=== PATIENT | male | born 1950 | race Caucasian/White ===

== ENCOUNTER 2018-03-18 15:04 | Day surgery (SDC) | payer MEDICARE, OTHER ==
--- NOTE | 2018-03-11 06:51 | HP ---
CC: Dr. Christiano Louise * ADMITTING HISTORY AND PHYSICAL: DATE OF ADMISSION: 03/21/18 ADMITTING DIAGNOSES: 1. Right hydronephrosis. 2. Partial urinary retention. 3. Enlarged prostate. PLANNED PROCEDURE: Right retrograde pyelogram, right ureteroscopy, and right stent insertion. SURGEON: Dr. Samuel. HISTORY OF PRESENT ILLNESS: Mark Winter is a 68-year-old gentleman who has had longstanding voiding symptoms for the last 10 years or so and has been on Flomax 0.4 mg once a day. He had taken Avodart briefly for a year and then had stopped it as he had not noticed any significant improvement in his symptoms. When I examined him, he was noted to have a moderately enlarged prostate with a nodule in the left base and also noted to have partial urinary retention with a postvoid residual of almost 400 cc. He underwent cystoscopy, which had revealed markedly enlarged prostate with multiple bladder diverticula and extensively trabeculated bladder. The right and left ureteral orifices appeared to be located within the hutch diverticula bilaterally. On ultrasound and subsequently on CT, he was noted to have cgsrohic-pe-wydlan right hydronephrosis, which I suspect could be due to obstruction of the ureter at the level of the ureterovesical junction secondary to a very thick wall bladder. He also has mild left hydronephrosis. I had a detailed discussion with Mr. Winter regarding this finding and he is now bring brought in for further evaluation and management of the right-sided hydronephrosis. PAST MEDICAL HISTORY: Unremarkable. PAST SURGICAL HISTORY: Significant for bilateral inguinal hernia repair and tonsillectomy. MEDICATIONS: On admission: 1. Flomax 0.4 mg. 2. Viagra on a p.r.n. basis. 3. Multiple supplements. 4. Vitamins. ALLERGIES: TETANUS. FAMILY HISTORY: Negative for prostate or bladder cancer. SOCIAL HISTORY: Smoking history: He is a nonsmoker. REVIEW OF SYSTEMS: He is otherwise in excellent health. There is no history of diabetes mellitus or any other major systemic illness. PHYSICAL EXAMINATION GENERAL: Reveals a pleasant healthy-appearing gentleman. VITAL SIGNS: Blood pressure is 130/82, pulse 83 per minute and regular, oxygen saturation 98% on room air. LUNGS: Clear bilaterally. CARDIOVASCULAR: Regular rate and rhythm. S1, S2. ABDOMEN: Soft with a partially distended bladder. There is mild right flank tenderness. IMPRESSION: A 68-year-old gentleman with partial urinary retention, a very thick walled trabeculated bladder, and right hydronephrosis, likely secondary to obstruction at the level of the ureterovesical junction secondary to a thick walled bladder. PLAN: Right retrograde, right ureteroscopy, and right stent insertion. [id number]/CPS #: [id number] MTDD
[~2018-03-18 15:04] MED LIST: Buffered Lidocaine 0.9% SYRIN* 5 ML/SYR SYRINGE INTRADERM ONE; Dexamethasone TAB* 4 MG PO ONE; DiMENhydriNATE IV* 50 MG/ML VIAL IV PUSH PRN; Famotidine IV* 10 MG/ML 2 ML (20 mg) IV ONE; Morphine INJ* 2 MG/ML 1 ML SYRINGE (TWO MG - NEW SYRINGE VERSION) IV PRN; Naloxone* 0.4 MG/ML 1 ML VIAL IV PRN; Ondansetron TAB* 4 MG PO ONE; PROCHLORPERAZINE INJ 5 MG/ML 2 ML VIAL IV PRN; fentaNYL* 50 MCG/ML 2 ML VIAL (100 MCG VIAL) IV PRN
[2018-03-18] MEDS ORDERED: Dexamethasone TAB* 4 MG ONE (15:37)
[2018-03-18] MEDS ORDERED: Famotidine IV* 10 MG/ML 2 ML (20 mg) ONE (15:37)
[2018-03-18] MEDS ORDERED: Ondansetron ODT TAB* 4 MG ONE (15:37)
[2018-03-18] MEDS ORDERED: cefTRIAXone(*) 2 GM ADDV.VIAL IVPB ONE (15:37)
[2018-03-18] MEDS ORDERED: Gentamicin ADULT (*) 160 MG in NS 0.9% 100 ML* 100 ML IVPB ONE (16:00)
[2018-03-18] MEDS ORDERED: Chloroprocaine 2%* 20 ML VIAL ONE (16:24)
[2018-03-18] MEDS ORDERED: Ondansetron INJ* 2 MG/ML VIAL ONE (16:24)
[2018-03-18] MEDS ORDERED: Propofol* 10 MG/ML 20 ML BTL IV PUSH ONE ×2 (16:24→18:33)
[2018-03-18] MEDS ORDERED: Iohexol 180 (CONTRAST) 10 ML SDV IV ONE ×2 (16:29→17:48)
[2018-03-18] MEDS ORDERED: Midazolam* 1 MG/ML 5 ML VIAL (5 MG) ONE (16:31)
[2018-03-18] MEDS ORDERED: fentaNYL* 50 MCG/ML 2 ML VIAL (100 MCG VIAL) ONE (16:31)
[2018-03-18] MEDS ORDERED: fentaNYL* 50 MCG/ML 2 ML VIAL (100 MCG VIAL) IV PRN (17:51)
[2018-03-18] MEDS ORDERED: DiMENhydriNATE IV* 50 MG/ML VIAL IV PUSH PRN (17:51)
[2018-03-18] MEDS ORDERED: oxyCODONE/Acetamin 5/325 MG* TAB PO PRN (17:51)
[2018-03-18] MEDS ORDERED: Ondansetron INJ* 2 MG/ML VIAL IV PRN (17:51)
[2018-03-18] MEDS ORDERED: Naloxone* 0.4 MG/ML 1 ML VIAL IV PRN (17:51)
[2018-03-18] MEDS ORDERED: Furosemide IV* 10 MG/ML 2 ML VIAL (20 MG) ONE (18:01)
[2018-03-18] MEDS ORDERED: Fluorescein 10% INJ* 100 MG/ML AMP ONE (18:45)
[2018-03-18] MEDS ORDERED: Lidocaine 2% JELLY* 6 ML JELLY TOPICAL ONE (19:28)
[2018-03-18 20:53] VITALS: BP 150/80
--- NOTE | 2018-03-19 06:57 | RAD ---
INDICATION: Right retrograde pyelogram and stent insertion. COMPARISON: Comparison is made with a prior CT urogram from March 04, 2018. TECHNIQUE: 5 seconds of intermittent fluoroscopic guidance were provided and 10 spot films of the abdomen were centered on the right side. FINDINGS: There is partial opacification of the right renal collecting system there is marked distention of the ureter and proximal renal collecting system consistent with hydronephrosis. Subsequently there is placement of a double-J stent catheter on the right side which demonstrates normal course. IMPRESSION: INTRAOPERATIVE CONTROL FILMS. CPT II Codes: G9500
--- NOTE | 2018-03-19 22:08 | OP ---
CC: Dr. Christiano Louise * DATE OF OPERATION: 03/18/18 - LOCATED WITHIN [facility] DATE OF : 46 SURGEON: Dr. Samuel ANESTHESIOLOGIST: Dr. Rivera ANESTHESIA: Spinal. PRE-OP DIAGNOSES: 1. Severe right hydronephrosis and hydroureter 2. Enlarged prostate. POST-OP DIAGNOSES: 1. Severe right hydronephrosis and hydroureter 2. Enlarged prostate. OPERATIVE PROCEDURE: Cystoscopy, right retrograde pyelogram, right ureteroscopy , right ureteral dilatation, and right stent insertion. OPERATIVE FINDINGS: 1. Stricture proximal bulbar urethra. 2. Markedly enlarged prostate. 3. Extensively trabeculated bladder with multiple diverticula. 4. Severe right hydronephrosis and dilated tortuous right proximal and midureter with obstruction at the level of the ureterovesical junction. COMPLICATIONS: None. POSTOPERATIVE CONDITION: Stable. STENT USED: 6-Malian stent right ureter. INDICATIONS: Mark Winter is a 68-year-old gentleman who was evaluated for prostate enlargement and partial urinary retention. He was also noted to have nbuhltiv-dj-hkdodz hydronephrosis and a significantly dilated right ureter down to the level of the ureterovesical junction. DESCRIPTION OF PROCEDURE: After induction of spinal anesthesia, the patient was placed in dorsal lithotomy position. Sequential compression devices were in place and functioning. Initial cystoscopy revealed a stricture in the proximal bulbar urethra, which was carefully dilated. The prostate is significantly enlarged including lateral lobe and especially median lobe enlargement. The bladder was examined. The bladder is extensively trabeculated with multiple diverticula. The ureteral orifices are difficult to locate because of the presence of multiple diverticula in the area close to the trigone bilaterally. The right orifice is located at the edge of hutch diverticulum and was identified. A guidewire was introduced. There was narrowing at the level of the ureterovesical junction and the remainder of the ureter was markedly enlarged and tortuous. Because of the tortuosity of the proximal ureter, initially I could not get a wire to advance into the renal pelvis despite multiple attempts. The distal ureter was dilated to 8-Malian and the 6-Malian semirigid ureteroscope was introduced. Other than the narrowing at the ureterovesical junction, the remainder of the ureter was significantly dilated, but because of the tortuosity, it was not easy to advance the ureteroscope. The ureteroscope was carefully advanced to the level of the [id number]-hi-ymc right ureter and then a wire was advanced proximally. I initially attempted to place a 7-Malian 28-cm silicon stent, but the stent was too short and the proximal loop of the stent was in the proximal ureter, so I removed the stent. Next, I changed it for a 6-Malian regular stent and this time the proximal loop made it just into the renal pelvis. The patient was given intravenous fluorescein and I could see the fluorescein dye draining from the side holes of the stent suggesting appropriate positioning. A 22-Malian Coude Carrasco was placed for bladder drainage. The patient tolerated the procedure satisfactorily and was transferred back to the recovery area in stable condition. I think the patient will need a transurethral resection of prostate in the near future for treatment of the significantly enlarged obstructing prostate and at that time I would consider stent change or stent removal depending on the resolution of the hydronephrosis. [id number]/CPS #: [id number] [facility]TER
== END 2018-03-18 20:40 | disposition home or self-care (01) ==
LOC: OR 15:04
PROVIDERS: ATTEND Urology
DX: N13.1 Hydronephrosis with ureteral stricture, not elsewhere classified (principal); N40.0 Benign prostatic hyperplasia without lower urinary tract symptoms; N32.3 Diverticulum of bladder; N35.9 Urethral stricture, unspecified
CPT/HCPCS: 74420; A9270-GY; C1876; J0696; J1580; J1940; J2250; J2400; J2405; J2704; J3010; J8540

== ENCOUNTER 2018-04-28 06:23 | Day surgery (SDC) | payer MEDICARE, OTHER ==
--- NOTE | 2018-04-17 09:34 | HP ---
CC: Dr. Louise * ADMITTING HISTORY AND PHYSICAL: DATE OF ADMISSION: 04/28/18 PREOPERATIVE DIAGNOSES: 1. Right hydronephrosis. 2. Urinary retention. PLANNED PROCEDURE: Cystoscopy, right retrograde, right ureteral stent change, possible ureteroscopy. SURGEON: Luca Samuel MD ADMITTING HISTORY AND PHYSICAL: Mark Winter is a 68-year-old gentleman who had initially been evaluated a couple of months ago because of bothersome voiding symptoms. He was noted to be in partial urinary retention and also was noted to have bilateral hydronephrosis, fairly severe on the right side and mild on the left. He had undergone right stent insertion on 03/18/18. At that time, the ureter was very tortuous due to long-standing obstruction and I was able to place a 6-Maltese stent. He will also require a transurethral resection of prostate for his bladder outlet obstruction in the near future, and prior to that, he is now being brought in for an attempt at changing the right stent and possibly trying to place a silicone stent, which can be left in for much longer. PAST MEDICAL HISTORY: Significant for: 1. BPH. 2. Right hydronephrosis. PAST SURGICAL HISTORY: Significant for right stent insertion on 03/18/18, bilateral inguinal hernia repair and tonsillectomy. MEDICATIONS: On admission: 1. Avodart 0.5 mg once a day. 2. Multivitamins. ALLERGIES: TETANUS. SOCIAL HISTORY: Smoking history, he is a non-smoker. REVIEW OF SYSTEMS: He is otherwise in excellent health. There is no history of diabetes mellitus or any other major systemic illness. PHYSICAL EXAMINATION GENERAL: Reveals a pleasant healthy-appearing gentleman. VITAL SIGNS: Blood pressure is 112/80, pulse 96 per minute regular, oxygen saturation 98% on room air. LUNGS: Lungs are clear bilaterally. CARDIOVASCULAR: Regular rate and rhythm. S1, S2. ABDOMEN: Soft with mild right flank tenderness. A Carrasco catheter is in place, draining clear urine. IMPRESSION: A 68-year-old gentleman with urinary retention and right hydronephrosis. PLANNED PROCEDURE: Right retrograde, right ureteral stent change, possible right ureteroscopy (to be followed at some point in the near future by transurethral resection of prostate). [id number]/[facility] #: [id number] [facility]
[~2018-04-28 06:23] MED LIST changes: +Dexamethasone IV* 4 MG/ML 1 ML (4 MG) IV SLOW PU ONE; -Dexamethasone TAB* 4 MG PO ONE; -DiMENhydriNATE IV* 50 MG/ML VIAL IV PUSH PRN; -Morphine INJ* 2 MG/ML 1 ML SYRINGE (TWO MG - NEW SYRINGE VERSION) IV PRN; -Naloxone* 0.4 MG/ML 1 ML VIAL IV PRN; -Ondansetron TAB* 4 MG PO ONE; -PROCHLORPERAZINE INJ 5 MG/ML 2 ML VIAL IV PRN; -fentaNYL* 50 MCG/ML 2 ML VIAL (100 MCG VIAL) IV PRN
[2018-04-28] MEDS ORDERED: cefTRIAXone(*) 2 GM ADDV.VIAL IVPB ONE (06:44)
[2018-04-28] MEDS ORDERED: Buffered Lidocaine 0.9% SYRIN* 5 ML/SYR SYRINGE ONE (06:44)
[2018-04-28] MEDS ORDERED: Dexamethasone IV* 4 MG/ML 1 ML (4 MG) ONE (06:44)
[2018-04-28] MEDS ORDERED: Famotidine IV* 10 MG/ML 2 ML (20 mg) ONE (06:44)
[2018-04-28] MEDS ORDERED: fentaNYL* 50 MCG/ML 2 ML VIAL (100 MCG VIAL) ONE (07:27)
[2018-04-28] MEDS ORDERED: Midazolam* 1 MG/ML 2 ML VIAL (2 MG) ONE (07:27)
[2018-04-28] MEDS ORDERED: Fluorescein 10% INJ* 100 MG/ML AMP ONE (08:08)
[2018-04-28] MEDS ORDERED: oxyCODONE/Acetamin 5/325 MG* TAB PO PRN (08:11)
[2018-04-28] MEDS ORDERED: Naloxone* 0.4 MG/ML 1 ML VIAL IV PRN (08:11)
[2018-04-28] MEDS ORDERED: DiMENhydriNATE IV* 50 MG/ML VIAL IV PUSH PRN (08:11)
[2018-04-28] MEDS ORDERED: fentaNYL* 50 MCG/ML 2 ML VIAL (100 MCG VIAL) IV PRN (08:11)
[2018-04-28] MEDS ORDERED: Acetaminophen TAB* 325 MG PO PRN (08:11)
[2018-04-28] MEDS ORDERED: Ondansetron INJ* 2 MG/ML VIAL IV PRN (08:11)
[2018-04-28] MEDS ORDERED: Iohexol 180 (CONTRAST) 10 ML SDV IV ONE (08:16)
[2018-04-28] MEDS ORDERED: Propofol* 10 MG/ML 20 ML BTL IV PUSH ONE (08:26)
[2018-04-28] MEDS ORDERED: Bupivacaine-MPF SPINAL* 7.5 MG/ML - 2ML AMP ONE (08:26)
[2018-04-28] MEDS ORDERED: Lidocaine 2% PF * 5 ML VIAL ONE (08:26)
[2018-04-28] MEDS ORDERED: Furosemide IV* 10 MG/ML 2 ML VIAL (20 MG) ONE (08:26)
[2018-04-28] MEDS ORDERED: Gentamicin ADULT (*) 160 MG in NS 0.9% 100 ML* 100 ML IVPB ONE (09:00)
--- NOTE | 2018-04-28 09:05 | RAD ---
INDICATION: Right hydronephrosis. COMPARISON: Correlation is made with a prior CT urogram symptoms from March 04, 2018. TECHNIQUE: 26 seconds seconds of intermittent fluoroscopic guidance were provided and 4 spot films of the abdomen were centered on the right side. FINDINGS: There is partial opacification of the right renal collecting system. There is marked dilatation of the right renal pelvis and calyces Subsequently there is placement of a double-J stent catheter on the right side which demonstrates normal course. IMPRESSION: INTRAOPERATIVE CONTROL FILMS. CPT II Codes: G9500
--- NOTE | 2018-04-28 11:33 | OP ---
CC: Christiano Louise MD * DATE OF OPERATION: 04/28/18 - [facility] DATE OF : 46 SURGEON: Luca Samuel MD ANESTHESIOLOGIST: Dr. Chavez. ANESTHESIA: Spinal. PRE-OP DIAGNOSES: 1. Right hydronephrosis and hydroureter. 2. Benign prostatic hypertrophy. 3. Urinary retention. POST-OP DIAGNOSES: 1. Right hydronephrosis and hydroureter. 2. Benign prostatic hypertrophy. 3. Urinary retention. OPERATIVE PROCEDURE: Cystoscopy, right stent removal, right retrograde pyelogram, right ureteroscopy and right stent insertion. COMPLICATIONS: None. STENT USED: An 8.5-Argentine 28 cm silicone stent right ureter. POST-OP CONDITION: Stable. OPERATIVE FINDINGS: 1. Right hydronephrosis and dilated tortuous right ureter. 2. Extensively trabeculated bladder with multiple diverticuli. 3. Enlarged prostate. INDICATIONS: Mark Winter is a 68-year-old gentleman with a history of right hydronephrosis, urinary retention, and a very large prostate. DESCRIPTION OF PROCEDURE: After induction of spinal anesthesia, the patient was placed in the dorsal lithotomy position. Sequential compression devices were in place and functioning. The previously placed stent was removed on fluoroscopy, it looked like the proximal coil of the stent may have been in the proximal ureter or ureteropelvic junction. The bladder was extensively trabeculated with multiple diverticuli. The prostate is significantly enlarged. The right orifice was identified and a retrograde pyelogram revealed a dilated ureter. The proximal ureter at the level of the ureteropelvic junction was still very tortuous and there was still a moderate degree of caliectasis. After some initial maneuvering, I was finally able to straighten the proximal ureter and once this was done, the wire could easily be advanced into the proximal collecting system. A 6-Argentine semirigid ureteroscope was introduced. The entire ureter down to the bladder was extensively dilated with no evidence of any lesions noted within the ureter. The ureteroscope was carefully withdrawn under direct vision and an 8.5-Argentine 28 cm silicone stent was introduced and positioned under fluoroscopy with good proximal and distal positioning obtained. A new 20-Argentine Carrasco catheter was placed. The patient will require a transurethral resection of prostate for his urinary retention in the near future and I have already discussed this with him. The patient tolerated the procedure satisfactorily and was transferred back to the recovery area in stable condition. [id number]/[facility] #: [id number] [facility]TER
[2018-04-28 13:34] VITALS: BP 133/79
== END 2018-04-28 13:35 | disposition home or self-care (01) ==
LOC: OR 06:23
PROVIDERS: ATTEND Urology
DX: N13.30 Unspecified hydronephrosis (principal); N40.0 Benign prostatic hyperplasia without lower urinary tract symptoms; R33.9 Retention of urine, unspecified; N32.3 Diverticulum of bladder; Z87.891 Personal history of nicotine dependence
CPT/HCPCS: 76001; A9270-GY; C1876; J0696; J1100; J1580; J1940; J2250; J2704; J3010

== ENCOUNTER 2018-05-26 08:53 | Observation (INO) | payer MEDICARE, OTHER ==
[~2018-05-26 08:53] MED LIST changes: +Gentamicin ADULT (*) 160 MG in NS 0.9% 100 ML* 100 ML IVPB ONE
[2018-05-26] MEDS ORDERED: Famotidine IV* 10 MG/ML 2 ML (20 mg) ONE (09:32)
[2018-05-26] MEDS ORDERED: cefTRIAXone(*) 2 GM ADDV.VIAL IVPB ONE (09:32)
[2018-05-26] MEDS ORDERED: Dexamethasone IV* 4 MG/ML 1 ML (4 MG) ONE (09:32)
[2018-05-26] MEDS ORDERED: Melatonin 3 MG TAB PO PRN (10:21)
[2018-05-26] MEDS ORDERED: Docusate CAP* 100 MG PO PRN (10:24)
[2018-05-26] MEDS ORDERED: fentaNYL* 50 MCG/ML 2 ML VIAL (100 MCG VIAL) ONE (10:26)
[2018-05-26] MEDS ORDERED: Midazolam* 1 MG/ML 2 ML VIAL (2 MG) ONE ×2 (10:26→11:24)
[2018-05-26] MEDS ORDERED: Furosemide IV* 10 MG/ML 2 ML VIAL (20 MG) ONE (11:24)
[2018-05-26] MEDS ORDERED: Propofol* 10 MG/ML 20 ML BTL ONE (11:24)
[2018-05-26] MEDS ORDERED: Naloxone* 0.4 MG/ML 1 ML VIAL IV PRN (12:04)
[2018-05-26] MEDS ORDERED: Ondansetron INJ* 2 MG/ML VIAL IV PRN (12:04)
[2018-05-26] MEDS ORDERED: fentaNYL* 50 MCG/ML 2 ML VIAL (100 MCG VIAL) IV PRN (12:04)
[2018-05-26] MEDS ORDERED: MELATONIN 10 MG PO PRN (14:43)
--- NOTE | 2018-05-27 04:39 | OP ---
CC: Dr. Louise * DATE OF OPERATION: 05/26/18 - ROOM #350 DATE OF : 46 SURGEON: Luca Samuel MD ANESTHESIOLOGIST: Dr. Shearer. ANESTHESIA: Spinal. PRE-OP DIAGNOSES: 1. Benign prostatic hypertrophy. 2. Urinary retention. 3. Bilateral hydronephrosis. POST-OP DIAGNOSES: 1. Benign prostatic hypertrophy. 2. Urinary retention. 3. Bilateral hydronephrosis. OPERATIVE PROCEDURE: 1. Transurethral resection of prostate. 2. Transurethral incision of bladder neck. INDICATIONS: Mark Winter is a 68-year-old gentleman who had been evaluated because of urinary retention and also bilateral hydronephrosis. This was much more pronounced on the right side and he has an indwelling right ureteral stent. He is now being brought in for transurethral resection of the prostate. COMPLICATIONS: None. ESTIMATED BLOOD LOSS: Approximately 100 cc. CATHETER: A 24-Lao Carrasco. POSTOPERATIVE CONDITION: Stable. DESCRIPTION OF PROCEDURE: After induction of spinal anesthesia, the patient was placed in dorsal lithotomy position. Sequential compression devices were in place and functioning. Initial evaluation revealed a normal-appearing urethra, a significantly enlarged prostate, predominantly the median lobe component. The bladder was examined. The previously placed right ureteral stent was noted to be in good position. Multiple bladder diverticuli were noted. Transurethral resection of the prostate was carried out from the bladder neck down to the veru. The floor of the prostate was resected followed by the lateral lobe tissue and then the anterior tissue. At no point was the resection carried distal to the veru in an effort to avoid any injury to the sphincter. The resected tissue was removed from the bladder using the Ellik evacuator. Next, using a right angle knife electrode, bladder neck incisions were carried out at the 5 and 7 o'clock positions in an effort to reduce any chances of postoperative bladder neck contracture. Hemostasis appeared satisfactory at the end of the procedure and a 24-Lao Carrasco catheter was placed without difficulty. The patient tolerated the procedure satisfactorily and was transferred back to the recovery area in stable condition. [id number]/CPS #: [id number] MTDD
[2018-05-27 06:02] LABS: EGFR Non-African American 84.5 (>60)
[2018-05-27 07:48] VITALS: BP 134/72
--- NOTE | 2018-05-28 12:53 | DS ---
CC: Dr. Christiano Louise; Luca Samuel MD * DISCHARGE SUMMARY: DATE OF ADMISSION: 05/26/18 DATE OF DISCHARGE: 05/27/18 ADMITTING DIAGNOSES: 1. Benign prostatic hyperplasia. 2. Urinary retention. ADMITTING HISTORY AND HOSPITAL COURSE: Mr. Mark Winter is a 68-year-old gentleman with longstanding history of voiding dysfunction. He had initially been evaluated for urinary retention and bilateral hydronephrosis. He had right stent placed, which is still currently in place for the right hydronephrosis. For details, please see admitting history and physical. On 05/26/18, Mr. Winter underwent transurethral resection of prostate under spinal anesthesia. Surgery was smooth and uneventful. He was observed overnight and was evaluated on 05/27/18. He was comfortable. The Carrasco catheter was draining reasonably clear urine in good amounts and he was discharged home with the Carrasco in place for followup as per outpatient protocol. [id number]/CPS #: [id number] MTDD
== END 2018-05-27 09:55 | disposition home or self-care (01) ==
LOC: OR 08:53 → SSU 14:28
PROVIDERS: ADMIT Urology; ATTEND Urology
DX: N40.0 Benign prostatic hyperplasia without lower urinary tract symptoms (principal); N13.30 Unspecified hydronephrosis; R33.9 Retention of urine, unspecified; Z87.891 Personal history of nicotine dependence
CPT/HCPCS: 36415; 80048; 88305; 96374; 96375; 96376; G0378; J0696; J1100; J1580; J1940; J2250; J2704; J3010